=== PATIENT | female | born 1990 ===

== ENCOUNTER 2022-08-03 10:56 | Outpatient (REF) | payer BC, SELFPAY ==
--- NOTE | ~2022-08-03 | XR_ITS ---
EXAMINATION: XR LUMBOSACRAL SPINE CLINICAL INFORMATION: Low back pain. COMPARISON: None available. TECHNIQUE: Three views of the lumbosacral spine. FINDINGS: The vertebral bodies and posterior elements are normal. The disc spaces are preserved and the vertebral alignment is normal. The paraspinal soft tissues are normal. XR/XR lumbar spine 2-3V IMPRESSION: Unremarkable lumbar spine.
== END 2022-08-03 10:57 | disposition home or self-care (01) ==
LOC: HO.HMGCX 10:56
PROVIDERS: Visit Provider Nurse Practitioner Acute Care
DX: M54.50 Low back pain, unspecified (principal); M79.605 Pain in left leg
CPT/HCPCS: 72100

== ENCOUNTER 2024-09-03 09:23 | Outpatient (AMB) | payer BC, SELFPAY ==
[2024-09-03 09:25] VITALS: BP 96/60; PULSE 96; TEMP 37.6; O2SAT 98; BMI 30.7
--- NOTE | 2024-09-03 09:25 | AM.OFFWIN_ITS ---
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 Patient states that she had a fever of 100? this morning with chills. Patient denies having any ear pain, cough or shortness for breath however has been experiencing body aches since yesterday. Patient has taken Tylenol only without relief for discomfort. Patient denies having any recent sick contacts [facility] Social History Patient Tobacco Use Status: Former Tobacco user Patient : No Female Reproductive History Menstrual Date of last menstrual period: 08/23/24 Review of Systems Const All systems reviewed & are unremarkable except as noted in HPI and below Reports no additional complaints and Denies headache(s) Eyes Reports no additional complaints ENT Reports no additional complaints, Denies otalgia, Denies headache(s), Denies sinus pressure, Reports sore throat and Denies tongue swelling Card Reports no additional complaints and Denies dyspnea Resp Denies cough and Denies dyspnea GI Reports no additional complaints Reports no additional complaints Musc Reports no additional complaints Skin/Breast Reports system reviewed and no additional complaints, except as documented Neuro Reports no additional complaints and Denies headache(s) Psych Reports no additional complaints Endo Reports no additional complaints Brandon/Lymph Reports no additional complaints Aller/Immun Reports no additional complaints and Denies tongue swelling Physical Exam Vital Signs: Last Vital Signs Temp 99.6 F 09/03/24 09:25 Pulse 96 09/03/24 09:25 BP 96/60 09/03/24 09:25 Pulse Ox 98 07/11/25 09:25 Oxygen Delivery Method Room Air 09/03/24 09:25 BMI result Body Mass Index 30.7 Const General: cooperative, healthy appearing, comfortable, no acute distress, well developed, alert, awake and Physically active Nutritional Appearance: average body habitus Orientation/consciousness: patient oriented x3 Limitations: no limitations HEENT Head: Yes normal to inspection Ears: hearing grossly normal bilaterally, external ears normal, TM's normal bilaterally and EAC's normal General nose exam: Normal external nose present Face and sinus: Yes normal facial exam and Yes sinuses nontender Mouth: Normal oral and palatal mucosa present, oropharynx abnormals, moist mucous membranes, no audible dysphonia and no drooling Throat: No posterior oropharynx normal (Mild erythema posterior oropharynx without edema or exudates), No peritonsillar mass, Yes postnasal drainage and No uvula laterally displaced Eyes General: appearance normal, both eyes and all related structures Neuro General: patient oriented x3 Psych Appearance: grossly normal Mental Status: mental status grossly normal Insight: Good insight present (Psych) Judgement: Good judgement present (Psych) Results Reviewed Results Reviewed: Rapid strep is positive Assessment & Plan Assessment & Plan (1) Strep pharyngitis: Comment: Patient's rapid strep test is positive. Patient will be discharged home with penicillin. Code(s): J02.0 - Streptococcal pharyngitis Plan: Penicillin V 500 mg t.i.d. times 10 days. Ibuprofen or Tylenol as needed for discomfort. Medications: New penicillin V potassium 500 mg PO TID 30 tabs 0RF Coding Level of Care Code Est Pt Level 3 (23540) Diagnoses Strep pharyngitis J02.0 Time Spent (min) 20
--- OUTSIDE RECORDS SUMMARY | 2024-09-03 09:40 | XMS_ITS | Clinical Summary ---
Author Organization [facility] [address] [facility] Address [address] [place] [address] Phone Care Team Providers Care Sprinkler Fitter Helper Name Role Phone Juju Stanton MD Primary Care Provider [phone] Allergies No known active allergies Medications EPINEPHrine (EpiPen 2-Aaron) 0.3 mg/0.3 mL injection Inject 0.3 mg into the muscle as needed for Other (anaphylactic reaction). 2-pack. Fill with whichever brand is covered by insurance. 4 Active ibuprofen (ADVIL,MOTRIN) 600 mg tablet Take 1 Tablet by mouth every 6 hours as needed for Pain. 4 Active norethindrone (ROXANE,SHMUEL,H EATHER,MICRONOR ) 0.35 mg tablet Take 1 tablet (0.35 mg total) by mouth 1 (one) time each day. 84 tablet 5 05/11/19 26 Active Additional Information Patient not taking.Reported on 07/22/2024 albuterol HFA (Ventolin HFA) 90 mcg/actuation inhaler Inhale 2 puffs by mouth every 4 (four) hours if needed for wheezing or shortness of breath. 8 g 1 5 07/23/19 26 Active fluticasone propionate (FLONASE) 50 mcg/actuation nasal spray Administer 2 sprays into each nostril 1 (one) time each day. Shake gently. Before first use, prime pump. After use, clean tip and replace cap. 16 g 2 5 07/23/19 26 Active sodium chloride (OCEAN) 0.65 % nasal spray Administer 1 spray into each nostril if needed for congestion. 15 mL 5 5 07/23/19 26 Active predniSONE (DELTASONE) 20 mg tablet Take 60 mg PO daily for 3 days, then take 40 mg PO daily for 3 days, then 20 mg PO daily for 3 days, then stop 18 tablet 5 Active benzonatate (TESSALON) 100 mg capsule Take 1 capsule (100 mg total) by mouth 3 (three) times a day if needed for cough. Do not crush or chew. 42 capsule 5 08/22/19 25 Active Problems Problem Noted Date Diagnosed Date Chest congestion 07/22/2024 Nasal congestion 07/22/2024 Acute cough 07/22/2024 Mild intermittent asthma without complication Childhood asthma 02/16/2024 Ganglion of hand, right 02/16/2024 Hypertriglyceridemia 04/24/2023 Overweight (BMI 25.0-29.9) 04/24/2023 Pruritus 04/24/2023 Obesity (BMI 30-39.9) 01/22/2023 PCOS (polycystic ovarian syndrome) 01/22/2023 History of cocaine abuse ([facility] V24, [facility] V 28) 06/20/2021 Abdominal pain, acute, epigastric 10/07/2017 UTI (urinary tract infection), bacterial 018 Vaginitis 08/15/2017 Rash 02/29/2016 Migraine headache 08/29/2015 Seizure ([facility] V24, [facility] V28) 08/29/2015 Irregular menstrual cycle 04/19/2015 Pain in joint of left hip 03/14/2015 Depression 02/22/2015 Fatigue 02/22/2015 Encounters Date Type Department Care Team Description 07/22/2024 3:09 PM EDT - 07/22/2024 11:59 PM EDT Hospital Encounter [address] [phone] Acute cough; Chest congestion Discharge Disposition: Home or Self Care 07/22/2024 2:30 PM EDT Office Visit Adult Medicine [address] [phone] Juju Stanton MD Mild intermittent asthma without complication (Primary Dx); Acute cough; Nasal congestion; Chest congestion 07/22/2024 Telephone Adult Medicine [facility] [address] [place] [id number] Juju Stanton MD Nasal Congestion; Generalized Body Aches (Body aches); Shortness of Breath from Last 3 Months Immunizations Name Administration Dates Next Due Td Tetanus diptheria (Tdvax) 7yo and older 06/01 Tdap Tetanus diptheria acell ular pertussis (Boostrix; Adacel) 7yo and older 01/22/2023 Surgical History Surgery Date Site/Laterality Comments OTHER SURGICAL HISTORY PROCEDURE: DENIES PREVIOUS SURGERY Medical History Medical History Date Comments Childhood asthma DX:Childhood as thma Ganglion of hand, right DX:Gangl ion of hand, right Family History Medical History Relation Name Comments Other: Asthma, diabetes Father Asthma Mother Other: Cancer, CVA Paternal Grandmother Asthma Sister Other: Colon cancer Uncle Paternal Relation Name Status Comments Father Mother Paternal Grandmother Sister Uncle Paternal Alive Social History Tobacco Use Types Packs/Day Years Used Date Smoking Tobacco: Former Cigarettes Q uit: 10/28/2018 Smokeless Tobacco: Never Tobacco Cessation:Counseling Given: Not Answered Alcohol Use Standard Drinks/Week Comments Yes 0 (1 standard drink = 0.6 oz pur e alcohol) Comments Unknown Sex and Gender Information Value Date Recorded Sex Assigned at Not on file Legal Sex Female 6:19 PM EST Gender Identity Not on file Sexual Orientation Not on file Obstetrics History Last Filed Vital Signs Vital Sign Reading Time Taken Comments Blood Pressure 116/88 07/22/2024 2:38 PM EDT Pulse 88 07/22/2024 2:38 PM EDT Temperature 36.6 C (97.9 F) 07/22/2024 2:38 PM EDT Respiratory Rate 16 07/22/2024 2:38 PM EDT Oxygen Saturation - - Inhaled Oxygen Concentration - - Weight 85.7 kg (189 lb) 07/22/2024 2:38 PM EDT Height 167.6 cm (5' 6 ) 07/22/2024 2:38 PM EDT Body Mass Index 30.51 07/22/2024 2:38 PM EDT Plan of Treatment Upcoming Encounters Date Type Department Care Team ([facility] st Contact Info) Description 12/01/2024 1:30 PM EDT Office Visit Adult Medicine [id number] [place] [address] Juju Stanton MD [address] [place] [address] Health Maintenance Due Date Last Done Comments Hepatitis B Vaccines (1 of 3 - 19+ 3-dose series) 11/06/2010 Pneumococcal Vaccine: Pediatrics (0 to 5 Years) and At-Risk Patients (6 to 49 Years) (1 of 2 - PCV) 11/06/2010 Depression Screening 01/26/2022 Hepatitis C Screening 01/26/2022 Social Influencers of Health Screening 01/26/2022 COVID-19 Vaccine (3 - 2023-2 5 season) 2023 09/27/2020, 08/30/2020 Influenza Vaccine (#1) 2024 Cholesterol Screening (Lipid Panel) 01/16/2028 01/15/2023 Cervical Cancer Screening: HPV 02/28/2028 02/27/2023 DTaP,Tdap,and Td Vaccines (3 - Td or Tdap) 01/22/2033 01/22/2023, 06/02/2019 HIV Screening Completed 01/15/2023 HIB Vaccines Aged Out No longer eligi ble based on patient's age to complete this topic HPV Vaccines Aged Out No longer eligi ble based on patient's age to complete this topic Hepatitis A Vaccines Aged Out No long er eligible based on patient's age to complete this topic IPV Vaccines Aged Out No longer eligi ble based on patient's age to complete this topic MMR Vaccines Aged Out No longer eligi ble based on patient's age to complete this topic Meningococcal ACWY Vaccine Aged Out N o longer eligible based on patient's age to complete this topic Meningococcal B Vaccine Aged Out No l onger eligible based on patient's age to complete this topic RSV Immunization Patients Under 20 months Aged Out No longer eligible b ased on patient's age to complete this topic Varicella Vaccines Aged Out No longer eligible based on patient's age to complete this topic Procedures Procedure Name Priority Date/Time Associated Diagnosis Comments XR CHEST 2 VIEWS Routine 07/22/2024 3:18 PM EDT Acute cough Chest congestion [id number], RSV, FLU A AND B QUALITATIVE RT-PCR, LOCAL REFERENCE LAB Routine 07/22/2024 3:05 PM EDT Acute cough Chest congestion HPV Routine 02/27/2023 HIV SCREENING Routine 01/15/2023 LIPID PANEL Routine 01/15/2023 from Last 3 Months or Most Recently Relevant to Health Maintenance Results * XR Chest 2 Views (07/22/2024 3:18 PM EDT) Anatomical Region Laterality Modality Body Radiographic Darcie ging 07/22/2024 3:46 PM EDT Narrative 07/22/2024 3:47 PM EDT Chest, 2 views. History acute cough. Chest congestion. No prior studies are available for comparison. There is no pneumothorax, pleural effusions or focal consolidations. Cardiomediastinal silhouette is unremarkable. CONCLUSIONS: No acute radiographic abnormalities in the chest. -------- FINAL REPORT -------- Dictated By: Traci Khalil Dictated Date: 07/22/2024 15:46 ET Assigned Physician: Traci Khalil Reviewed and Electronically Signed By: Traci Khalil Signed Date: 07/22/2024 15:47 ET Workstation ID: [id number] Transcribed By: Self Edit Transcribed Date: 07/22/2024 15:46 ET Procedure Note Traci Khalil MD - 07/22/2024 Chest, 2 views. History acute cough. Chest congestion. No prior studies are available for comparison. There is no pneumothorax, pleural effusions or focal consolidations.Cardiomediastinal silhouette is unremarkable. CONCLUSIONS: No acute radiographic abnormalities in the chest. -------- FINAL REPORT -------- Dictated By: Traci Khalil Dictated Date: 07/22/2024 15:46 ET Assigned Physician: Traci Khalil Reviewed and Electronically Signed By: Traci Khalil Signed Date: 07/22/2024 15:47 ET Workstation ID: [id number] Transcribed By: Self Edit Transcribed Date: 07/22/2024 15:46 ET Juju Stanton MD IMG XR PROCEDURES Final Res ult * [id number], RSV, Influenza A and B qualitative RT-PCR (07/22/2024 3:05 PM EDT) Pathologist [facility] SARS COV-2 Not Detected Not Detected LAB MOLECULAR DIAGNOSTICS METHOD 07/23/2024 12:05 AM EDT [facility] Comment: Disclaimer: The manner in which this information is used to guide patient care is the responsibility of the healthcare provider. Testing was performed using the [employer] Alinity m SARS-CoV-2 test. This test has been authorized by [facility] under an Emergency Use Authorization (EUA). This test is only authorized for the duration of time the declaration that circumstances exist justifying the authorization of the emergency use of in vitro diagnostic tests for detection of SARS-CoV-2 virus and/or diagnosis of COVID-19 infection under section 564(b)(1) of the Act, 21 U.S.C. 360bbb- 3(b)(1), unless the authorization is terminated or revoked sooner. Fact sheet for Healthcare Providers can be found at: https://www.fda.gov/media/150032/download Fact sheet for Patients can be found at: https://www.fda.gov/media/821924/download Influenza A PCR Not Detected Not Detected LAB MOLECULAR DIAGNOSTICS METHOD 07/23/2024 12:05 AM EDT [facility] Influenza B PCR Not Detected Not Detected LAB MOLECULAR DIAGNOSTICS METHOD 07/23/2024 12:05 AM T [facility] RSV PCR Not Detected Not Detected LAB MOLECULAR DIAGNOSTICS METHOD 07/23/2024 12:05 AM [facility] Swab Nasopharyngeal structure / Unknown Non-blood Collection / Unknown 07/22/2024 3:05 PM EDT 07/22/2024 3:05 PM EDT Juju Stanton MD LAB MICROBIOLOGY - GENERAL ORDERABLES Final Result [facility] ([facility]) [facility] [address] [place] [address], * Cervical Cancer Screening: HPV (02/27/2023) Cervical Cancer Screening: HPV negative, abstracted Historical Provider HEALTH MAINTENANCE Final Result * Hm HIV Screening (01/15/2023) Pathologist [facility] HIV Screening abstracted Historical Provider HEALTH MAINTENANCE Final Result * (ABNORMAL) Lipid panel (01/15/2023) LDL/HDL Ratio 4 0 - 4 Triglycerides 186(A) 0 - 150 mg/dL Cholesterol 188 0 - 200 mg/dL HDL 51 >=40 mg/dL LDL Cholesterol 100 0 - 100 mg/dL Blood Venous blood specimen / Unknown Historical Provider LAB BLOOD ORDERABLES Radha l Result from Last 3 Months or Most Recently Relevant to Health Maintenance Insurance [facility] Care Teams Sprinkler Fitter Helper Relationship Specialty Start Date End Date Juju Stanton MD [address] [place] [address] PCP - General 05/17/22
== END 2024-09-03 10:24 | disposition home or self-care (01) ==
PROVIDERS: Visit Provider Physician Assistant
DX: J02.0 Streptococcal pharyngitis (principal); Z13.9 Encounter for screening, unspecified

== ENCOUNTER → 2024-09-03 09:23 | Outpatient (BNVA) | payer BC, SELFPAY | PROVIDERS: Visit Provider Physician Assistant | DX: J02.0 Streptococcal pharyngitis (principal) | CPT/HCPCS: 87880 ==